=== PATIENT | female | born 1955 | race Caucasian/White ===

== ENCOUNTER → 2025-05-13 | Outpatient (REF) | payer MEDICARE, SELFPAY ==
--- OUTSIDE RECORDS SUMMARY | 2025-05-13 04:27 | XMS RPT_ITS | CCD ---
Author Organization [facility] Care Team Providers Care Instructional Leader Name Role Phone Brayan Wills Attending Unavailable Brayan Wills Attending Unavailable Brayan Wills Attending Unavailable Encounters Encounter Date Encounter Type Care Provider Facility Start: 05-06-2025 ambulatory Brayan CHAPPELL Facil ity:[facility] Start: 05-02-2025 ambulatory Brayan CHAPPELL Facil ity:[facility] Start: 05-01-2025 ambulatory Brayan CHAPPELL Facil ity:[facility] Payers Date Payer Category Payer Self-pay Summary Purpose Family History No Family History Records Found Advance Directives No Advanced Directives Records Found Additional Source Comments INFORMATION SOURCE (unrecogn ized section and content) DATE CREATED AUTHOR 2025 [facility] FOR RECORDS PERTAINING TO PATIENTS WHO ARE OR HAVE BEEN ENROLLED IN A CHEMICAL DEPENDENCY/SUBSTANCEABUSE PROGRAM, SOME INFORMATION MAY BE OMITTED. This clinical summary was aggregated from multiple sources. Caution should be exercised in using it in the provision of clinical care. This summary normalizes information from multiple sources, and as a consequence, information in this document may materially change the coding, format and clinical context of patient data. In addition, data may be omitted in some cases. CLINICAL DECISIONS SHOULD BE BASED ON THE PRIMARY CLINICAL RECORDS. [email or web address] provides no warranty or guarantee of the accuracy or completeness of information in this document.
== END ==
LOC: OLS.ACW300 05:00
PROVIDERS: Visit Provider Family Medicine
DX: Z79.899 Other long term (current) drug therapy (principal)

== ENCOUNTER → 2025-05-15 05:00 | Outpatient (REF) | payer MEDICARE, SELFPAY ==
--- OUTSIDE RECORDS SUMMARY | 2025-05-15 04:32 | XMS RPT_ITS | CCD ---
Author Organization [facility] Inform ion Partnership [facility] Care Team Providers Care Recreation Program Coordinator Name Role Phone Brayan Wills Attending Unavailable Brayan Wills Attending Unavailable Brayan Wills Attending Unavailable Celio CHAPPELL, Brayan Attending Unavailable Encounters Encounter Date Encounter Type Care Provider Facility Start: 05-13-2025 ambulatory Brayan CHAPPELL Facil ity:[facility] Start: 05-06-2025 ambulatory Brayan CHAPPELL Facil ity:[facility] Start: 05-02-2025 ambulatory Brayan CHAPPELL Facil ity:[facility] Start: 05-01-2025 ambulatory Brayan CHAPPELL Facil ity:[facility] Payers Date Payer Category Payer Self-pay Summary Purpose Family History No Family History Records Found Advance Directives No Advanced Directives Records Found Additional Source Comments INFORMATION SOURCE (unrecogn ized section and content) DATE CREATED AUTHOR 05/14/2025 [facility] FOR RECORDS PERTAINING TO PATIENTS WHO [...] BE BASED ON THE PRIMARY CLINICAL RECORDS. [facility] [employer] provides no warranty or guarantee of the accuracy or completeness of information in this document.
[2025-05-17 17:08] LABS: KEPPRA (LEVETIRACETAM) 15.9 ug/mL (10.0-40.0)
== END ==
LOC: OLS.ACW400 05:00
PROVIDERS: Visit Provider Family Medicine
DX: Z51.81 Encounter for therapeutic drug level monitoring (principal); G20.B1 Parkinson's disease with dyskinesia, without mention of fluctuations; R53.1 Weakness; R27.9 Unspecified lack of coordination; R26.81 Unsteadiness on feet; R41.841 Cognitive communication deficit; E03.9 Hypothyroidism, unspecified
CPT/HCPCS: 36415; 80177

== ENCOUNTER → 2025-06-17 04:00 | Outpatient (REF) | payer MEDICARE, SELFPAY ==
--- OUTSIDE RECORDS SUMMARY | 2025-06-17 04:34 | XMS RPT_ITS | CCD ---
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 Task Learning FUNCTIONAL STATUS / per clinical judgement Activities of Daily Living Assist Level Additional Information Feeding Independent Grooming Stand By Assistance, Additional Information seated EOB to brush hair and complete oral hygiene. SBA for safety throughout due significant safety deficits and pt is a high fall risk. Bathing Upper Body Minimal Assistance Bathing Lower Body Maximal Assistance Dressing Upper Body Set Up Dressing Lower Body Maximal Assistance Toileting Moderate Assistance Mobility Assist Level Additional Information Bed Mobility Supine To Sit: Stand By Assistance, Additional Information HOB elevated, exit to R, no use of rail Sit To Supine: Stand By Assistance, Additional Information Scooting: Contact Guard Assistance;Stand By Assistance;Additional Information from R, HOB (more content not included)... Normal [facility] CBC panel Auto (Bld)on 04-28 Erythrocyte distribution width (RBC) [Ratio] 13.9 % Normal 11.5-15.0 [facility] Comment on above: Order Comment: Speci men Type: BLOOD SPECIMENOrdering Facility: [facility] Address: [address] [place] [address] Performed By: #### 5 8410-2 ####[facility]ORATORYCLIA [id number] [place] [address] [place] Hematocrit (Bld) [Volume fraction] 38.7 % Normal 36.0-46.0 [facility] Comment on above: Order Comment: Speci men Type: BLOOD SPECIMENOrdering Facility: [facility] Address: [address] [place] [address] Performed By: #### 5 8410-2 ####[facility]ORATORYCLIA [id number] [place] [address] [place] Hemoglobin (Bld) [Mass/Vol] 12.2 g/dL Normal 11.5-15.5 [facility] Comment on above: Order Comment: Speci men Type: BLOOD SPECIMENOrdering Facility: [facility] Address: [address] [place] [address] Performed By: #### 5 8410-2 ####[facility]ORATORYCLIA [id number] [address] MCH (RBC) [Entitic mass] 27.4 pg Normal 26.0-34.0 [facility] Comment on above: Order Comment: Speci men Type: BLOOD SPECIMENOrdering Facility: [facility] Address: [address] [place] [address] Performed By: #### 5 8410-2 ####[facility]ORATORYCLIA [id number] [address] MCHC (RBC) [Mass/Vol] 31.5 g/dL Normal 30.5-36.0 [facility] Comment on above: Order Comment: Speci men Type: BLOOD SPECIMENOrdering Facility: [facility] Address: [address] [place] [address] Performed By: #### 5 8410-2 ####[facility]ORATORYCLIA [id number] [address] MCV (RBC) [Entitic vol] 86.8 fL Normal 80.0-100.0 [facility] Comment on above: Order Comment: Speci men Type: BLOOD SPECIMENOrdering Facility: [facility] Address: [address] [place] [address] Performed By: #### 5 8410-2 ####[facility]ORATORYCLIA [id number] [address] Nucleated RBC (Bld) [#/Vol] 10*3/uL Normal <0.01 [facility] Comment on above: Order Comment: Speci men Type: BLOOD SPECIMENOrdering Facility: [facility] Address: [address] [place] [address] Performed By: #### 5 8410-2 ####[facility]ORATORYCLIA [id number] [address] Platelet mean volume (Bld) [Entitic vol] 10.2 fL Normal 9.0-12.7 [facility] Comment on above: Order Comment: Speci men Type: BLOOD SPECIMENOrdering Facility: [facility] Address: [address] [place] [address] Performed By: #### 5 8410-2 ####[facility]ORATORYCLIA [id number] [address] [place] Platelets (Bld) [#/Vol] 222 10*3/uL Normal 150-400 [facility] Comment on above: Order Comment: Speci men Type: BLOOD SPECIMENOrdering Facility: [facility] Address: [address] [place] [address] Performed By: #### 5 8410-2 ####[facility]ORATORYCLIA [id number] [place] [address] [place] RBC (Bld) [#/Vol] 4.46 10*6/uL Normal 3.90-5.20 [facility] Comment on above: Order Comment: Speci men Type: BLOOD SPECIMENOrdering Facility: [facility] Address: [address] [place] [address] Performed By: #### 5 8410-2 ####[facility] LABORATORYCLIA [id number] [address] OF [facility] WBC (Bld) [#/Vol] 4.64 10*3/uL Normal 3.70-11.00 [facility] Comment on above: Order Comment: Speci men Type: BLOOD SPECIMENOrdering Facility: [facility] Address: [address] [place] [address] Performed By: #### 5 8410-2 ####[facility]ORATORYCLIA [id number] [address] [place] Renal function 2000 panelon 04-28-2025 Albumin [Mass/Vol] 3.9 g/dL Normal 3.9-4.9 [facility] Comment on above: Order Comment: Speci men Type: BLOOD SPECIMEN [facility] Address: [address] [place] [address] Performed By: #### 2 4362-6 #### [facility] CLIA [id number] [address] [place] Anion gap [Moles/Vol] 11 mmol/L Normal 8-15 [facility] Comment on above: Order Comment: Speci men Type: BLOOD SPECIMEN [facility] Address: [address] [place] [address] Performed By: #### 2 4362-6 #### [facility] CLIA [id number] [address] [place] [address] [place] Calcium [Mass/Vol] 9.6 mg/dL Normal 8.5-10.2 [facility] Comment on above: Order Comment: Speci men Type: BLOOD SPECIMEN [facility] Address: [address] [place] [address] Performed By: #### 2 4362-6 #### [facility] CLIA [id number] [address] [place] [address] [place] Chloride [Moles/Vol] 102 mmol/L Normal 98-107 [facility] Comment on above: Order Comment: Speci men Type: BLOOD SPECIMEN [facility] Address: [address] [place] [address] Performed By: #### 2 4362-6 #### [facility] CLIA [id number] [address] [place] [address] [place] CO2 [Moles/Vol] 27 mmol/L Normal 22-30 [facility] Comment on above: Order Comment: Speci men Type: BLOOD SPECIMEN [facility] Address: [address] [place] [address] Performed By: #### 2 4362-6 #### [facility] CLIA [id number] [address] [place] [address] [place] Creatinine [Mass/Vol] 0.70 mg/dL Normal 0.58-0.96 [facility] Comment on above: Order Comment: Speci men Type: BLOOD SPECIMEN [facility] Address: [address] [place] [address] Performed By: #### 2 4362-6 #### [facility] CLIA [id number] [address] [place] [address] [place] eGFRcr SerPlBld CKD-EPI 2020 94 mL/min/1.73m??? Normal >=60 [facility] Comment on above: Order Comment: Speci men Type: BLOOD SPECIMEN [facility] Address: [address] [place] [address] Result Comment: Nicole mated Glomerular Filtration Rate (eGFR) is calculated using the 2020 CKD-EPI creatinine equation. This equation utilizes serum creatinine, sex, and age as parameters. The creatinine assay has traceable calibration to isotope dilution-mass spectrometry. Refer to KDIGO guidelines for clinical interpretation. In patients with unstable renal function, e.g. those with acute kidney injury, the eGFR may not accurately reflect actual GFR. Performed By: #### 2 4362-6 #### [facility] CLIA [id number] [address] [place] [address] [place] Glucose [Mass/Vol] 92 mg/dL Normal 74-99 [facility] Comment on above: Order Comment: Lamberto laguna Type: BLOOD SPECIMEN [facility] Address: [address] [place] [address] Result Comment: The [place] [employer] (ADA) provides guidance for cutoff values for fasting glucose and random glucose. The ADA defines fasting as no caloric intake for at least 8 hours. Fasting plasma glucose results between 100 to 125 mg/dL indicate increased risk for diabetes (prediabetes). Fasting plasma glucose results greater than or equal to 126 mg/dL meet the criteria for diagnosis of diabetes. In the absence of unequivocal hyperglycemia, results should be confirmed by repeat testing. In a patient with classic symptoms of hyperglycemia or hyperglycemic crisis, random plasma glucose results greater than or equal to 200 mg/dL meet the criteria for diagnosis of diabetes. Reference: Standards of Medical Care in Diabetes 2016, [place] [employer]. Diabetes Care. 2016.39(Suppl 1). Performed By: #### 2 4362-6 #### [facility] CLIA [id number] [address] [place] [address] [place] Phosphate [Mass/Vol] 3.6 mg/dL Normal 2.7-4.8 [facility] Comment on above: Order Comment: Lamberto laguna Type: BLOOD SPECIMEN [facility] Address: [address] [place] [address] Performed By: #### 2 4362-6 #### [facility] CLIA [id number] [address] [place] [address] [place] Potassium [Moles/Vol] 4.1 mmol/L Normal 3.7-5.1 [facility] Comment on above: Order Comment: Lamberto laguna Type: BLOOD SPECIMEN [facility] Address: [address] [facility] [place] [address] Performed By: #### 2 4362-6 #### [facility] CLIA [id number] [address] OF [facility] Sodium [Moles/Vol] 140 mmol/L Normal 136-144 [facility] Comment on above: Order Comment: Lamberto men Type: BLOOD SPECIMEN [facility] Address: [address] [place] [address] Performed By: #### 2 4362-6 #### [facility] CLIA [id number] [address] Urea nitrogen [Mass/Vol] 21 mg/dL Normal 7-21 [facility] Comment on above: Order Comment: Lamberto jase Type: BLOOD SPECIMEN [facility] Address: [address] [place] [address] Performed By: #### 2 4362-6 #### [facility] CLIA [id number] [address] THERAPY NTon 04-28-2025 THERAPY NT HNO ID: [id number] Author: YOUSUF CADET PTA Service: Physical Therapy Author Type: Export Freight Clerk Type: Therapy (PT/OT/Speech/Resp) Filed: 04/28/2025 11:16 Note Text: Attestation signed by Marla Lange, PT at 04/28/2025 3:42 PM I reviewed and agree with the documentation corresponding to this therapy visit. SIGNATURE: Marla Lange PT DATE: April 28, 2025 TIME: 3:42 PM Physical Therapy Treatment Summary SERVICE DATE: 04/28/2025 SERVICE TIME: 1045 to 1109 ROOM: [place] [address] PT 6 Clicks Score: 14 DISCHARGE RECOMMENDATIONS Subacute/SNF Recommended Discharge Disposition Comments: Pt is currently performing functional mobility below PLOF and would benefit from continued skilled PT to reduce risk of falls and rehospitalization. Recommended Discharge Disposition Due to: Functional deficits requiring ongoing therapy service prior to discharge home., Anticipated community discharge, Balance deficits, Functional status decline, Requires multiple therapy disciplines Anticipated Discharge Needs: Physical Assist at Home, Supervision at Home Physical Assist at Home for: Cleaning, Laundry, Meals, Safety, Shopping, Transportation, Transfers, Ambulation, Self Care, Stairs, Medication Management (02/05 however current rec SNF) Supervision at Home due to: Decreased safety awareness, Impaired cognition Recommended Discharge Equipment: To Be Determined ASSESSMENT Response to Therapy Interventions: Good Participation in Activities, Improved Tolerance for Activity, On-Track to Achieve Discharge Goals, Cognitive Deficits Patient pleasant and motivated to participate with PT. Patient successfully able to progress ambulation distance and perform seated exercises with no adverse effects. Patient continues to present with cognitive deficits in addition to weakness, poor balance and decreased activity tolerance. Patient requires Min-Mod A to complete all functional mobility. Continue to recommend SNF. PRECAUTIONS Bed/Chair Alarm, Fall Risk, Lines/Tubes/Drains orthostatic hypotension, monitor vitals CURRENT HOSPITAL COURSE Patient presents with AMS, found to by lying in the grass naked and disheveled covered in feculent material Relevant Past Medical History: Lewy body dementia, depression, orthostatic hypotension, hypothyroidism, PD HOME LIVING Patient Lives With: Spouse, Other: See Comment Comments: Pt/spouse living out of a car Assistance Available: PRN Tub/Shower Type: has not been completing since living in car Equipment Owned: Cane, Walker- Wheeled, Other: See Comment (reports she has devices in the car) PRIOR FUNCTIONAL LEVEL Within Functional Limits Patient is a questionable historian, unsure of accuracy of PLOF, reports indep with ADLs, has a walker but has not needed is recently, reports recently at a rehab facility with spouse and pt/spouse have been living out of their car for 6-8 days, reports 50-60 falls in the past 6 months due to syncope SUBJECTIVE Patient pleasant and agreeable to PT session. ok per RN. THERAPY DIAGNOSIS Reduced mobility-other TREATMENT INTERVENTIONS Therapeutic Exercise (62794), Therapeutic Activity (10579), Gait Training (23142) Timed Code Treatment (minutes): 24 Skilled Treatment Time (minutes): 24 Therapeutic Exercise (67879) Treatment Minutes: 10 $ Therapeutic Exercise (52298) Billed Units: 1 unit Exercise Ankle Pumps (number of reps): x10 B LE Glut Sets (number of reps): x10 B Heel Slides (number of reps): x10 B LE LAQ (number of reps): x10 B LE Hip Abduction (number of reps): x10 B LE Exercise: x10 B LE hip adduction, x10 B LE hip flexion. All exercises performed seated and were slightly manually resisted. Therapeutic Activity (10652) Treatment Minutes: 4 $ Therapeutic Activity (61993) Billed Units: 0 units Gait Training (94681) Treatment Minutes: 10 $ Gait Training (76187) Billed Units: 1 unit TRAINING AND EDUCATION PROVIDED Advanced Balance Activities, Anatomy and Impact on Deficits, Assistive Device Use, Bed Mobility, Benefits of In-Hospital Mobility, Discharge Planning, Equipment, Exercise Program, Expected Functional Level, Falls Prevention, Gait Pattern, Reduction of Deviations, Home Safety, Positioning, Patient Exercise/Therapy Program Support Needs, Role of Physical Therapy THERAPEUTIC SKILLS USED Activity Dosing, Assessment of Tolerance Including Vitals Response to Activity, Cues for Sequencing/Proper Technique for Activity, Cuing Verbal, Movement Facilitation, Muscle Activation Facilitation, Physical Assist, Postural Alignment Correction FUNCTIONAL STATUS Bed Mobility Supine To Sit: Stand By Assistance HOB flat, no use of rails Sit to Supine: Stand By Assistance HOB flat, no use of rails Scooting: Indep (more content not included)... [facility] THERAPY NTon 04-26-2025 THERAPY NT HNO ID: [id number] Author: CURLY DEWITT, OT/L Service: ? Author Type: Occupational Therapist Type: Therapy (PT/OT/Speech/Resp) Filed: 04/26/2025 14:22 Note Text: Summary: OT Missed Visit OCCUPATIONAL THERAPY MISSED VISIT SERVICE DATE: 04/26/2025 SERVICE TIME: 1017 ROOM: [place] [address] Patient not seen due to Patient Not Available. CM and newly appointed guardian present at bedside meeting with patient. Will re-attempt as able. SIGNATURE: ALLISON Jenkins PATIENT NAME: Tanvir Lane DATE: April 26, 2025 TIME: 10:17 AM [facility] NUTRITIONon 04-25-2025 NUTRITION HNO ID: [id number] Author: ARTEM PEREZ RD Service: Nutrition Therapy Author Type: Registered Dietitian Type: Nutrition Filed: 04/25/2025 14:46 Note Text: NUTRITION THERAPY COUNTER TENDER NOTE SERVICE DATE: 04/25/2025 SERVICE TIME: 230pm Visit Type: Length of Stay Plan of Care: Intake- 75-100 % of meals. Monitor intake. Reviewed current labs and physician progress notes. 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 Underweight MNT Billing: $ Routine Care : 1 unit SIGNATURE: Artem Perez RD PATIENT NAME: Tanvir Lane DATE: April 25, 2025 TIME: 2:44 PM [facility] THERAPY NTon 04-23-2025 THERAPY NT HNO ID: [id number] Author: RAJEEV FONSECA PT Service: Physical Therapy Author Type: Export Freight Clerk Type: Therapy (PT/OT/Speech/Resp) Filed: 04/23/2025 17:10 Note Text: Attestation signed by Rajeev Fonseca PT at 04/23/2025 5:10 PM I reviewed and agree with the documentation corresponding to this therapy visit. SIGNATURE: Rajeev Fonseca PT DATE: April 23, 2025 TIME: 5:10 PM Physical Therapy Treatment Summary SERVICE DATE: 04/23/2025 SERVICE TIME: 1037 to 1102 ROOM: [id number] PT 6 Clicks Score: 13 DISCHARGE RECOMMENDATIONS Subacute/SNF Recommended Discharge Disposition Comments: Pt is currently performing functional mobility below PLOF and would benefit from continued skilled PT to reduce risk of falls and rehospitalization. Recommended Discharge Disposition Due to: Functional deficits requiring ongoing therapy service prior to discharge home., Anticipated community discharge, Balance deficits, Functional status decline, Requires multiple therapy disciplines Anticipated Discharge Needs: Physical Assist at Home, Supervision at Home Physical Assist at Home for: Cleaning, Laundry, Meals, Safety, Shopping, Transportation, Transfers, Ambulation, Self Care, Stairs, Medication Management (02/05 however current rec SNF) Supervision at Home due to: Decreased safety awareness, Impaired cognition Recommended Discharge Equipment: To Be Determined ASSESSMENT Response to Therapy Interventions: Good Participation in Activities, Improved Tolerance for Activity, On-Track to Achieve Discharge Goals, Labile Vital Signs Patient pleasant and cooperative. Presents with siginficant weakness and balance deficits. Patient requires Mod A and heav 1-step cues to complete all mobility. Patient is a high fall risk. Continue to recommend SNF. PRECAUTIONS Bed/Chair Alarm, Fall Risk, Lines/Tubes/Drains orthostatic hypotension, monitor vitals CURRENT HOSPITAL COURSE Patient presents with AMS, found to by lying in the grass naked and disheveled covered in feculent material Relevant Past Medical History: Lewy body dementia, depression, orthostatic hypotension, hypothyroidism, PD HOME LIVING Patient Lives With: Spouse, Other: See Comment Comments: Pt/spouse living out of a car Assistance Available: PRN Tub/Shower Type: has not been completing since living in car Equipment Owned: Cane, Walker- Wheeled, Other: See Comment (reports she has devices in the car) PRIOR FUNCTIONAL LEVEL Within Functional Limits Patient is a questionable historian, unsure of accuracy of PLOF, reports indep with ADLs, has a walker but has not needed is recently, reports recently at a rehab facility with spouse and pt/spouse have been living out of their car for 6-8 days, reports 50-60 falls in the past 6 months due to syncope SUBJECTIVE Patient pleasant and agreeable to PT session. ok per RN. THERAPY DIAGNOSIS Reduced mobility-other TREATMENT INTERVENTIONS Therapeutic Exercise (80477), Therapeutic Activity (54435), Gait Training (55921) Timed Code Treatment (minutes): 25 Skilled Treatment Time (minutes): 25 Therapeutic Exercise (70833) Treatment Minutes: 10 $ Therapeutic Exercise (78296) Billed Units: 1 unit Exercise Ankle Pumps (number of reps): x15 B LE Heel Slides (number of reps): x15 B LE LAQ (number of reps): x15 B LE Hip Abduction (number of reps): x15 B LE Exercise: x15 B LE hip adduction, x15 B LE hip flexion. All exercises performed seated and were slightly manually resisted. X5 sit/stand functional test completed in 40 + seconds, required use of FWW, Mod A, retro lean Therapeutic Activity (87070) Treatment Minutes: 5 $ Therapeutic Activity (66245) Billed Units: 0 units Gait Training (15902) Treatment Minutes: 10 $ Gait Training (01487) Billed Units: 1 unit TRAINING AND EDUCATION PROVIDED Advanced Balance Activities, Anatomy and Impact on Deficits, Assistive Device Use, Bed Mobility, Benefits of In-Hospital Mobility, Discharge Planning, Equipment, Exercise Program, Expected Functional Level, Falls Prevention, Gait Pattern, Reduction of Deviations, Positioning, Patient Exercise/Therapy Program Support Needs, Role of Physical Therapy THERAPEUTIC SKILLS USED Activity Dosing, Assessment of Tolerance Including Vitals Response to Activity, Cues for Sequencing/Proper Technique for Activity, Cuing Verbal, Movement Facilitation, Muscle Activation Facilitation, Physical Assist, Postural Alignment Correction, Cuing Tactile FUNCTIONAL STATUS Bed Mobility Supine To Sit: Stand By Assistance HOB flat, use of rails Sit to Supine: Stand By Assistance HOB flat, no use of rails Scooting: Stand By Assistance forwrd to EOB Transfers Sit To Stand: Moderate Assistance x7 trials from EOB, cues for pos (more content not included)... Normal [facility] Basic metabolic 2000 panelon 04-19-2025 Anion gap [Moles/Vol] 12 mmol/L Normal 8-15 [facility] Comment on above: Order Comment: Speci men Type: BLOOD SPECIMENOrdering Facility: [facility] Address: [address] [place] [address] Performed By: #### 1 9123-9, 2777-1, [facility], 91566-8 ####[facility] [id number] [place] [address] [place] Calcium [Mass/Vol] 9.6 mg/dL Normal 8.5-10.2 [facility] Comment on above: Order Comment: Speci men Type: BLOOD SPECIMENOrdering Facility: [facility] Address: [address] [place] [address] Performed By: #### 1 9123-9, 2777-1, [facility], 91387-9 ####[facility] [id number] [place] [address] [place] Chloride [Moles/Vol] 104 mmol/L Normal 98-107 [facility] Comment on above: Order Comment: Speci men Type: BLOOD SPECIMENOrdering Facility: [facility] Address: [address] [place] [address] Performed By: #### 1 9123-9, 2777-1, [facility], [address]227-9 ####[facility] LABORATORYCLIA [id number] [place] [address] [place] CO2 [Moles/Vol] 27 mmol/L Normal 22-30 [facility] Comment on above: Order Comment: Speci men Type: BLOOD SPECIMENOrdering Facility: [facility] Address: [address] [place] [address] Performed By: #### 1 9123-9, 2777-1, [facility], 40417-2 ####[facility] LABORATORYCLIA [id number] [address] STATES OF [facility] Creatinine [Mass/Vol] 0.72 mg/dL Normal 0.58-0.96 [facility] Comment on above: Order Comment: Speci men Type: BLOOD SPECIMENOrdering Facility: [facility] Address: [address] [place] [address] Performed By: #### 1 9123-9, 2777-1, [facility], 72873-9 ####[facility] LABORATORYCLIA [id number] [address] Creatinine and Glomerular filtration rate.predicted panel (S/P/Bld) 91 mL/min/1.73m??? Normal >=60 [facility] Comment on above: Order Comment: Lamberto laguna Type: BLOOD SPECIMENOrdering Facility: [facility] Address: [address] [place] [address] Result Comment: Nicole mated Glomerular Filtration Rate (eGFR) is calculated using the 2020 CKD-EPI creatinine equation. This equation utilizes serum creatinine, sex, and age as parameters. The creatinine assay has traceable calibration to isotope dilution-mass spectrometry. Refer to KDIGO guidelines for clinical interpretation. In patients with unstable renal function, e.g. those with acute kidney injury, the eGFR may not accurately reflect actual GFR. Performed By: #### 1 9123-9, 2777-1, [facility], 97700-3 ####[facility] LABORATORYCLIA [id number] [address] [place] Glucose [Mass/Vol] 108 mg/dL High 74-99 [facility] Comment on above: Order Comment: Lamberto jase Type: BLOOD SPECIMENOrdering Facility: [facility] Address: [address] [place] [address] Result Comment: The [place] [employer] (ADA) provides guidance for cutoff values for fasting glucose and random glucose. The ADA defines fasting as no caloric intake for at least 8 hours. Fasting plasma glucose results between 100 to 125 mg/dL indicate increased risk for diabetes (prediabetes). Fasting plasma glucose results greater than or equal to 126 mg/dL meet the criteria for diagnosis of diabetes. In the absence of unequivocal hyperglycemia, results should be confirmed by repeat testing. In a patient with classic symptoms of hyperglycemia or hyperglycemic crisis, random plasma glucose results greater than or equal to 200 mg/dL meet the criteria for diagnosis of diabetes. Reference: Standards of Medical Care in Diabetes 2016, [employer] Association. Diabetes Care. 2016.39(Suppl 1). Performed By: #### 1 9123-9, 2777-1, [facility], 72954-7 ####[facility] LABORATORYCLIA [id number] [place] [address] [place] Potassium [Moles/Vol] 3.7 mmol/L Normal 3.7-5.1 [facility] Comment on above: Order Comment: Lamberto laguna Type: BLOOD SPECIMENOrdering Facility: [facility] Address: [address] [place] [address] Performed By: #### 1 9123-9, 277-, [facility], 33527-4 ####[facility] LABORATORYCLIA [id number] [place] [address] [place] Sodium [Moles/Vol] 143 mmol/L Normal 136-144 [facility] Comment on above: Order Comment: Lamberto laguna Type: BLOOD SPECIMENOrdering Facility: [facility] Address: [address] [place] [address] Performed By: #### 1 9123-9, 277-, [facility], 40600-9 ####[facility] LABORATORYCLIA [id number] [place] [address] [place] Urea nitrogen [Mass/Vol] 23 mg/dL High 7-21 [facility] Comment on above: Order Comment: Lamberto laguna Type: BLOOD SPECIMENOrdering Facility: [facility] Address: [address] [place] [address] Performed By: #### 1 9123-9, 277-, [facility], 93674-8 ####[facility] LABORATORYCLIA [id number] [place] [address] [place] CBC W Auto Differential pane l (Bld)on 04-19-2025 Basophils (Bld) [#/Vol] 10*3/uL Normal <0.11 [facility] Comment on above: Order Comment: Speci men Type: BLOOD SPECIMEN [facility] Address: [address] [place] [address] Performed By: #### 5 7021-8 #### [facility] CLIA [id number] [address] [place]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 Records FoundNo Advanced Directives Records FoundNo Advanced Directives Records Found Additional Source Comments Source Comments (unrecognize d section and content) In the event this informatio n is protected by the Federal Confidentiality of Alcohol and Drug Abuse Patient Records regulations: The Federal rules restrict any use of the information to criminally investigate or prosecute any alcohol or drug abuse patient.[facility] event this information is protected by the Federal Confidentiality of Alcohol and Drug Abuse Patient Records regulations: The Federal rules restrict any use of the information to criminally investigate or prosecute any alcohol or drug abuse patient.[facility] INFORMATION SOURCE (unrecogn ized section and content) DATE CREATED AUTHOR 04/30/2025 [facility] DATE CREATED AUTHOR AUTHOR'S ORGANIZ ATION 06/04/2025 [facility] DATE CREATED AUTHOR AUTHOR'S ORGANIZ ATION 06/12/2025 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 [employer] [facility]. provides no warranty or guarantee of the accuracy or completeness of information in this document.
[2025-06-17 09:35] LABS: Hematocrit 37.9 % (37-47); Hemoglobin 12.1 g/dL (12.0-15.0); Mean Corp Hgb Conc 31.9 g/dL (32-36); Mean Corpuscular Volume 87.7 fL (81-99); Mean Platelet Vol. 10.4 fl (6.2-12.0); Platelet Count 242 K/mm3 (150-450); RBC Distribution Width CV 15.5 % (11.6-14.6); RBC Distribution Width SD 49.8 fl (35.1-43.9); Red Blood Count 4.32 M/mm3 (4.2-5.4); White Blood Count 5.5 K/mm3 (4.4-11.0)
[2025-06-17 10:59] LABS: Anion Gap 14 (5-15); BUN 14 mg/dL (4-19); BUN/Creat Ratio 17.5 RATIO (10-20); Calcium,Total 9.8 mg/dL (7.6-11.0); Carbon Dioxide 23.9 mmol/L (21.0-32.0); Chloride 103 mmol/L (98-108); Glucose 78 mg/dL (70-99); Potassium 4.1 mmol/L (3.3-5.1); Vitamin D,25 Hydroxy 47.3 ng/mL (30-100)
== END ==
LOC: OLS.ACW400 04:00
PROVIDERS: Referring Provider Family Medicine; Visit Provider Family Medicine
DX: E03.9 Hypothyroidism, unspecified (principal); G20.B1 Parkinson's disease with dyskinesia, without mention of fluctuations; R53.1 Weakness; R41.841 Cognitive communication deficit; R27.9 Unspecified lack of coordination; R26.81 Unsteadiness on feet; E87.6 Hypokalemia; F02.C2 Dementia in other diseases classified elsewhere, severe, with psychotic disturbance
CPT/HCPCS: 36415; 80048; 82306; 84443; 85027